=== PATIENT | female | born 1975 | race Caucasian/White ===

== ENCOUNTER → 2023-05-06 16:47 | Outpatient (REF) | payer OTHER, SELFPAY | LOC: WDC 16:47 | PROVIDERS: ATTENDING PHYSICIAN Family Medicine | DX: Z12.31 Encounter for screening mammogram for malignant neoplasm of breast (principal) | CPT/HCPCS: 77063; 77067 ==

== ENCOUNTER → 2023-05-21 08:09 | Outpatient (REF) | payer OTHER, SELFPAY | LOC: WDC 08:09 | PROVIDERS: ATTENDING PHYSICIAN Family Medicine | DX: R92.8 Other abnormal and inconclusive findings on diagnostic imaging of breast (principal) | CPT/HCPCS: 76642 ==

== ENCOUNTER 2024-09-03 21:21 | Emergency (ER) | payer OTHER, SELFPAY ==
[2024-09-03 21:29] VITALS: BP 159/92
--- NOTE | 2024-09-03 22:45 | ED.GENMED ---
History of Present Illness
General
Chief Complaint: Allergic Reaction
Source: patient and family (daughter)
Exam Limitations: none
Time Seen by Provider: 09/03/24 22:18
Nursing documentation reviewed up to this point in time: agreed with
History of Present Illness
History of Present Illness:
The patient is a 49-year-old female with a past medical history of tree nut allergy who reports that at around 730 this evening she ate a cookie and developed an itchy mucousy feeling in her throat and a cough within minutes after eating the cookie.
Patient reports she took 75 mg of Benadryl. She then decided to come to the ED. While in the waiting the emergency department, she administered an EpiPen to herself. Patient reports that she feels completely fine. She denies any itching. She
denies any throat discomfort. She denies any shortness of breath. Patient reports she took the EpiPen about an hour and a half ago. Patient reports he had a similar reaction after eating cookies with tree nuts in them about 2 weeks ago and also
took Benadryl and EpiPen at that time. Patient does not know exactly which tree nuts she is allergic to.
Past History
Past History
ED Past Medical History: Other (ADHD)
ED Past Surgical History: Gynecological
Social History
Tobacco: Non-smoker
Alcohol: None
Drug: None
Personal:
Living: with family
Employment: Other
Family History
Family History: Other
Review of Systems
Review of Systems
Allergies reviewed?: Yes
All Other Systems: ROS reviewed and negative except as documented in HPI and ROS
Constitutional: Reports no symptoms
EENT: Reports other
Respiratory: Reports cough
Cardiac: Reports no symptoms
ABD/GI: Reports abdominal pain (' Grumbling of stomach' but no stomach pain); Denies nausea, vomiting or diarrhea
: Reports no symptoms
Musculoskeletal: Reports no symptoms
Skin: Reports no symptoms; Denies itching
Neurological: Reports no symptoms
Endocrine: Reports no symptoms
Hematologic/Lymphatic: Reports no symptoms
Psychiatric: Reports no symptoms
Phy Exam
Physical Exam
Physical Exam:
Physical Exam
General: no apparent distress, not acutely ill. Well and comfortable appearing
Neck: supple. No pooling of saliva, no stridor, no uvular swelling
Heart: s1/s2 regular rate and rhythm, no murmur. equal radial pulses.
Lungs: no acute respiratory distress. clear bilaterally
Abdomen: Soft, nontender
Neuro: alert and oriented. no focal neurological deficits
Skin: no rash. no erythema or hives
Psychiatric: well kept. interactive and cooperative
Extremities: no edema.
Course
Vital Signs
Initial and Last Documented VS:
Initial Vital Signs
Temp Pulse Resp BP Pulse Ox
97.8 F 71 18 159/92 97
09/03/24 21:29 09/03/24 21:29 09/03/24 21:29 09/03/24 21:29 09/03/24 21:29
Last Documented Vital Signs
Temp Pulse Resp BP Pulse Ox
97.8 F 71 18 159/92 97
09/03/24 21:29 09/03/24 21:29 09/03/24 21:29 09/03/24 21:29 09/03/24 21:29
MDM/Problems Addressed
Differential Diagnosis Includes:
Allergic reaction to tree nuts, pharyngitis
MDM/Problems Addressed:
Patient presents with acute cough and sore throat after eating a cookie
Chronic conditions affecting care:
Tree allergy
Acute Exacerbation and/or Progression of Chronic Illness:
Patient likely had acute exacerbation of tree allergy
*Pulse Oximetry
SaO2: 97
Oxygen Mode of Delivery: Room air
Patient hypoxic: no
Comment: 97% on room air
*EKG
Interpreted by ED Provider?: NA
*Parts Coordinator Interpretation
Rate: Parts Coordinator- N/A
*Critical Care Note
Total Time (30-74mins, 75-104mins- exclusive of procedures): Not Applicable
Data Reviewed
Source: patient
Further Testing Considered But Not Given:
Patient denies chest pain and palpitations. Heart rate is in the 70s, therefore, I do not feel an EKG is necessary
Patient Management
Social determinants of health affecting care: Living situation and Strong social support
Escalation/DeEscalation of care consider admission/obs:
I feel patient can safely go home. There is no sign of airway compromise. She has 2 EpiPen's at home. She is home with family in the event that any symptoms worsen. Patient told to return immediately with any pooling of saliva, difficulty
breathing or swallowing.
ED Attending Note
-
Portions of this chart may have been created with voice recognition software.� Occasional wrong word or��sound alike� substitutions may have occurred due to the inherent limitations of voice recognition software.
Discharge Plan
Departure
Patient Disposition: Home (Routine Discharge)
Date of Disposition: 09/03/24
Time of Disposition: 22:41
Patient with high blood pressure during this ER visit?: Yes
Condition: Good
Covid-19: Not Applicable
Discharge Problem:
Allergic reaction to tree nut
Instructions: Allergic reaction - ED discharge instructions, BLOOD PRESSURE
Prescriptions:
No Action
lisdexamfetamine [Vyvanse] 60 MG capsule
60 mg PO DAILY
Activity Restrictions/Additional Instructions:
Return for any difficulty breathing or swallowing.
Take 50 mg of Benadryl every 8 hours as needed for any itching or lingering symptoms.
Please follow-up with your primary care doctor in regards to seeing an engraver machine for allergy testing
Interventions
Interventions:
*Risk Screen - Suicide Last Done: 09/03/24 21:33
*General Assessment Last Done: 09/03/24 21:33
*Neglect/Abuse Screening Last Done: 09/03/24 21:33
*ED COVID-19 Vaccine History Last Done: 09/03/24 21:33
Discharge Date and Time
Print Language: ITALIAN
[2024-09-03 23:00] VITALS: BP 145/96
== END 2024-09-03 23:15 | disposition home or self-care (01) ==
LOC: EMR 21:21
PROVIDERS: EMERGENCY PHYSICIAN Emergency Medicine; FAMILY PHYSICIAN Family Medicine
DX: T78.1XXA Other adverse food reactions, not elsewhere classified, initial encounter (principal); Y92.9 Unspecified place or not applicable; F90.9 Attention-deficit hyperactivity disorder, unspecified type
CPT/HCPCS: 99282